=== PATIENT | female | born 1990 | race Caucasian/White ===

== ENCOUNTER 2018-04-06 16:44 | Emergency (ER) | payer BC ==
[~2018-04-06] VITALS: Ht 172.7 cm; Wt 101.6 kg
[2018-04-06 17:26] LABS: BILIRUBIN,URINE NEGATIVE (NEGATIVE); CLARITY,URINE CLEAR; COLOR,URINE YELLOW; GLUCOSE, URINE (UA) NEGATIVE (NEGATIVE); KETONES,URINE NEGATIVE (NEGATIVE); LEUKOCYTE ESTERASE ,URINE NEGATIVE (NEGATIVE); NITRITE,URINE NEGATIVE (NEGATIVE); PH,URINE 7 (5-9); PROTEIN,URINE NEGATIVE (NEGATIVE); UROBILINOGEN,URINE NORMAL (NORMAL)
[2018-04-06 17:36] LABS: BACTERIA,URINE FEW /HPF
--- NOTE | 2018-04-06 18:15 | Diagnostic Imaging Report ---
INDICATION: Pelvic pain. EXAMINATION: Transvaginal ultrasound. FINDINGS: The uterus appears normal. There is no fibroid or myometrial mass. Right ovary contains a 2.5 cm simple appearing cyst. The left ovary appears normal. There is a small amount of free fluid in the right adnexa and cul-de-sac without obvious complexity. There were no findings of torsion. IMPRESSION: Small free fluid with simple appearing right ovarian cyst. Dictated by: Dictated on workstation # [id number]
--- NOTE | 2018-04-06 18:30 | ED Abdominal Pain ---
General Chief Complaint: -Female Stated Complaint: LOWER ABD PAIN Nursing Triage Note: PT AMBULATED TO RM 6 WITHOUT DIFFICULTIES AND ACCOMPANIED BY MOTHER. PT STATES SHE HAD A UTI LAST WEEK AND FINISHED BACTRIM ON MONDAY. PT STATES SHE DEVELOPED A RASH ON THE LAST DAY OF BACTRIM. PT STATES SHE BEGAN HAVING LOWER AB PAIN ON MONDAY. WENT TO [facility] TODAY AND WAS TOLD THERE WAS BLOOD IN HER URINE. PT C/O OF LOWER ABDOMINAL PAIN THAT RADIATES TO THE BACK, NO APPETITE AND LOOSE STOOLS. PT HAS HAD GALLBLADDER REMOVED. PT STILL HAS APPENDIX. Sepsis Screen: No Definite Risk Source of Information: Patient Exam Limitations: No Limitations History of Present Illness Date Seen by Provider: Apr 06, 2018 Time Seen by Provider: 07:10 Initial Comments Patient presents with symptoms of pelvic pain for about 3 or 4 days which is focused on the right side. She had treated a suspected urinary tract infection with Bactrim. She developed a rash with Bactrim. The prescription was provided by an eye doctor but no UA was performed. Her symptoms include pain in the pelvis with tenderness in the right lower quadrant, and sedation of incomplete voiding, urinary frequency, and cloudy urine. She denies any fever, constipation, nausea, or vomiting. She has had some loose stools today. Her last menstrual period was March 16. She is taking some ibuprofen which has been helpful. She has had some milky white discharge in small amounts. She is sexually active and is on control. She only sometimes uses condoms. She is only had one partner within the last year. She has no history of vaginal infections other than yeast infections associated with antibiotics. She reports having a miscarriage in October. She has had cholecystectomy. See nursing history above. Allergies and Home Medications Allergies Coded Allergies: No Known Drug Allergies (Unverified , 03/17/13) Home Medications Fluconazole 150 Mg Tablet, 150 MG PO UD Take one at the first sign of a yeast infection. Repeat in 3 or 4 days if needed. Prescribed by: JOSE F LABOY on 04/06/181837 Nitrofurantoin Monohyd/M-Cryst 100 Mg Capsule, 1 TAB PO BID Prescribed by: JOSE F LABOY on 04/06/181837 Patient Home Medication List Home Medication List Reviewed: Yes Review of Systems Constitutional: no symptoms reported EENTM: No Symptoms Reported Respiratory: No Symptoms Reported Cardiovascular: No Symptoms Reported Gastrointestinal: See HPI Genitourinary: See HPI Musculoskeletal: no symptoms reported Skin: no symptoms reported Psychiatric/Neurological: No Symptoms Reported Endocrine: No Symptoms Reported Past Cyersek-Krcxeu-Maykrt Hx Past Med/Social Hx: Reviewed and Corrections made Patient Social History Alcohol Use: Denies Use Recreational Drug Use: No Recent Foreign Travel: No Contact w/Someone Who Travel: No Recent Infectious Disease Expo: No Recent Hopitalizations: No Physical Abuse: No Sexual Abuse: No Immunizations Up To Date Tetanus Booster (TDap): Unknown Seasonal Allergies Seasonal Allergies: No Past Medical History Surgeries: Yes Gallbladder Respiratory: No Cardiac: No Neurological: No : No Last Menstrual Period: Mar 20, 2018 Reproductive Disorders: No Genitourinary: No Gastrointestinal: No Musculoskeletal: No Endocrine: No HEENT: No Cancer: No Psychosocial: No Nursing Suicide Risk Score: 0 Integumentary: No Blood Disorders: No Physical Exam Vital Signs Vital Signs - First Documented 04/06/18 17:03 Temp 97.3 Pulse 92 B/P (MAP) 127/83 (98) Pulse Ox 100 O2 Delivery Room Air Capillary Refill : Less Than 3 Seconds Height/Weight/BMI Height: 5'8.00" Weight: 224lbs. oz. 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, no motor/sensory deficits, alert, normal mood/affect, oriented x 3 Skin: normal color, warm/dry Progress/Results/Core Measures Results/Orders Lab Results Laboratory Tests Test 04/06/18 17:20 Range/Units Urine Color YELLOW Urine Clarity CLEAR Urine pH 7 5-9 Urine Specific Mchenry 1.010 L 1.016-1.022 Urine Protein NEGATIVE NEGATIVE Urine Glucose (UA) NEGATIVE NEGATIVE Urine Ketones NEGATIVE NEGATIVE Urine Nitrite NEGATIVE NEGATIVE Urine Bilirubin NEGATIVE NEGATIVE Urine Urobilinogen NORMAL NORMAL MG/DL Urine Leukocyte Esterase NEGATIVE NEGATIVE Urine RBC (Auto) 4+ H NEGATIVE Urine RBC 2-5 H /HPF Urine WBC 5-10 H /HPF Urine Squamous Epithelial Cells 5-10 /HPF Urine Crystals NONE /LPF Urine Bacteria FEW H /HPF Urine Casts NONE /LPF Urine Mucus NEGATIVE /LPF Urine Culture Indicated YES My Orders Orders - JOSE F MARCH MD Urine Bedside (04/06/18 17:19) Ua Culture If Indicated (04/06/18 17:19) Us Non Ob Transvaginal [id number] (04/06/18 17:19) Urine Culture (04/06/18 17:20) Vital Signs/I&O 04/06/18 17:03 Temp 97.3 Pulse 92 B/P (MAP) 127/83 (98) Pulse Ox 100 O2 Delivery Room Air Blood Pressure Mean: 98 Urine -Bedside: Negative Progress Progress Note : Progress Note Patient's UA was suggestive of urinary tract infection. Macrobid was prescribed. Ultrasound was performed revealing a small right ovarian cyst with free fluid suggestive of rupture. Departure Impression Primary Impression: Right lower quadrant pain Additional Impressions: Urinary tract infection Qualified Codes: N39.0 - Urinary tract infection, site not specified Ovarian cyst Qualified Codes: N83.201 - Unspecified ovarian cyst, right side Disposition: 01 HOME, SELF-CARE Condition: Stable Departure-Patient Inst. Decision time for Depature: 18:15 Referrals: NO,LOCAL PHYSICIAN (PCP/Family) Primary Care Physician Patient Instructions: Acute Abdomen (Belly Pain), Ovarian Cyst (DC), Urinary Tract Infection, Adult (DC) Add. Discharge Instructions: You may take ibuprofen up to 600 mg every 6 hours as needed for pain. Add Tylenol (acetaminophen) up to 1000 mg every 6 hours as needed for additional pain relief. Return to care if symptoms are worsening. Complete the entire course of your antibiotic as prescribed. Check with your primary care provider on Monday to review urine culture results. This will help ensure you are taking an appropriate antibiotic for the type of infection. If you develop symptoms of yeast infection, fill and use the Diflucan as prescribed. All discharge instructions reviewed with patient and/or family. Voiced understanding. Scripts Fluconazole (Diflucan) 150 Mg Tablet 150 MG PO UD, #2 TAB Take one at the first sign of a yeast infection. Repeat in 3 or 4 days if needed. Prov: JOSE F MARCH MD 04/06/18 Nitrofurantoin Monohyd/M-Cryst (Macrobid 100 mg Capsule) 100 Mg Capsule 1 TAB PO BID, #14 CAP Prov: JOSE F MARCH MD 04/06/18 JOSE F MARCH MD Apr 06, 2018 18:30
[2018-04-06] MEDS ORDERED: NITR-65 PO (18:38)
[2018-04-06] MEDS ORDERED: FLUC150T PO (18:38)
[2018-04-06 18:52] VITALS: BP 124/82
--- OUTSIDE RECORDS SUMMARY | 2018-04-06 19:34 | XMS REPORT ---
Author Author JONAS GARCIA [facility] Address Unknown Care Team Providers Care Shipping Clerk/Admin Name Role Phone RADHA JONAS Unavailable PROBLEMS Unknown Problems ALLERGIES No Known Allergies ENCOUNTERS Encounter Location Date Diagnosis [facility] [address] [id number] [place], [place] [id number] Jul, Dental examination Z01.20 IMMUNIZATIONS No Known Immunizations SOCIAL HISTORY Never Assessed REASON FOR VISIT walk in [place] PLAN OF CARE Activity Details Follow Up prn Reason: VITAL SIGNS Blood pressure systolic 121 mmHg 2017-07-14 Blood pressure diastolic 73 mmHg 2017-07-14 MEDICATIONS Medication Instructions Dosage Frequency Start Date End Date Duration Status Sprintec 28 Active RESULTS No Results PROCEDURES Procedure Date Ordered Result Body Site LTD ORAL EVALUATION - PROBLEM FOCUS Jul 14, 2017 INTRAORL-PERIAPICAL 1 FILM [id number] Jul 14, 2017 RESIN COMPOS - 2 SURFACES POSTERIOR Jul 14, 2017 BITEWING - SINGLE FILM Jul 14, 2017 INSTRUCTIONS MEDICATIONS ADMINISTERED No Known Medications MEDICAL (GENERAL) HISTORY Type Description Date Surgical History [place] [facility] 2009 Surgical History Gallbladder removal 2011
--- OUTSIDE RECORDS SUMMARY | 2018-04-06 19:34 | XMS REPORT | Continuity of Care Document ---
Author Author [facility] Organization [facility] Address Unknown Phone Unavailable Care Team Providers Care Fire Alarm Technician Name Role Phone ADELINA HOUGH MD PP Insurance Providers Payer Name Policy Number Subscriber Name Relationship Jun [facility] [id number] Jocelyne Clifton 03 Father Jun [facility] [id number] Koki Clifton 03 Mother Advance Directives Directive Response Recorded Date Advance Directives N 03/17/13 4:19pm Problems No Known Problems or Medical conditions. Social History History Response Recorded Date/Time Alcohol Use Denies Use 03/17/13 4:19pm Recreational Drug Use N 03/17/13 4:19pm Allergies, Adverse Reactions, Alerts Allergen Type Severity Reaction Last Updated No Known Drug Allergies 03/17/13 Medications No known medications Response Recorded Date/Time Status not known Unknown Results No Known Relevant Diagnostic Tests, Laboratory Data and/or Discharge Summary. Encounters Encounter Location Date/Time Departed Emergency Room [facility] 03/23 3:59pm
== END 2018-04-06 18:52 | disposition home or self-care (01) ==
LOC: EDUNIT# 16:44 → ER 16:46
DX: N83.201 Unspecified ovarian cyst, right side (principal); N39.0 Urinary tract infection, site not specified; Z87.440 Personal history of urinary (tract) infections; Z90.49 Acquired absence of other specified parts of digestive tract; Z87.59 Personal history of other complications of pregnancy, childbirth and the puerperium
CPT/HCPCS: 76830; 81000; 84703; 87088

== ENCOUNTER → 2019-08-22 | Outpatient (CLI) | payer BC ==
[~2019-08-22] MED LIST: FLUC150T PO; NITR-65 PO
--- NOTE | 2019-08-22 08:43 | Diagnostic Imaging Report ---
CLINICAL INDICATIONS: Patient with left neck mass. COMPARISONS: None. FINDINGS: THYROID NODULES: There is a 2.0 cm x 1.2 cm x 1.6 cm slightly heterogeneous, predominantly hypoechoic nodule involving the midportion of the left thyroid lobe. There is no significant central Doppler flow involving this nodule. THYROID GLAND: Besides the thyroid nodule, the thyroid gland has normal size, shape and echogenicity. The right lobe measures 5.2 cm x 1.7 cm x 1.4 cm and the left lobe measures 5.8 cm x 1.9 cm x 1.9 cm in their three dimensions. ISTHMUS: The isthmus is unremarkable and measures 3 mm in thickness. IMPRESSION: 1: There is a 2.0 cm nodule involving the midportion of the left thyroid gland. Given its size, fine-needle aspiration is suggested for better evaluate. 2: The remainder of the thyroid gland is unremarkable. Dictated by: Dictated on workstation # [id number]
== END ==
LOC: RAD 07:36
PROVIDERS: ATTEND Family Medicine
DX: E04.1 Nontoxic single thyroid nodule (principal)
CPT/HCPCS: 76536

== ENCOUNTER → 2019-08-28 | Outpatient (CLI) | payer BC ==
[~2019-08-28] MED LIST changes: +LIDOCAINE 1% INJ 20 ML 20 ML VIAL INJ ONE; +LIDOCAINE 1% INJ 20 ML 20 ML VIAL ONE
--- NOTE | 2019-08-29 13:44 | Diagnostic Imaging Report ---
INDICATION: Left thyroid nodule. COMPARISON: Correlation is made with recent thyroid ultrasound from 08/22/2019. FINDINGS: Patient reported today for fine-needle aspiration of left thyroid nodule. A previously noted hypoechoic nodule in left lobe of the thyroid has significantly reduced in size. This now measures 11 mm x 9 mm x 5 mm. This compares with 20 mm x 12 mm x 16 mm on prior. No microcalcifications are seen. No other thyroid nodules are detected. Due to significant decrease in size of the nodule, it was decided to cancel patient's fine-needle aspiration. After discussion with the patient, it was decided that patient should come back in six months for additional thyroid ultrasound to show continued stability of the left thyroid nodule. IMPRESSION: Significant reduction in size of left lobe thyroid nodule when compared with study six days earlier. This is most consistent with significant reduction in size of a complex cyst such as a colloid cyst. Follow-up in six months is recommended to show stability. Dictated by: Dictated on workstation # [id number]
== END ==
LOC: RAD 13:43
PROVIDERS: ATTEND Family Medicine
DX: E04.1 Nontoxic single thyroid nodule (principal); R22.1 Localized swelling, mass and lump, neck
CPT/HCPCS: 76536

== ENCOUNTER → 2020-07-31 | Outpatient (CLI) | payer BC ==
[~2020-07-31] MED LIST changes: -LIDOCAINE 1% INJ 20 ML 20 ML VIAL INJ ONE; -LIDOCAINE 1% INJ 20 ML 20 ML VIAL ONE
--- NOTE | 2020-07-31 09:51 | Diagnostic Imaging Report ---
PROCEDURE: US Thyroid. TECHNIQUE: Multiple real-time grayscale images were obtained of the thyroid in various projections. INDICATION: Thyroid nodule, follow-up. CORRELATION is made with prior thyroid ultrasound from 08/22/2019. Right lobe of thyroid measures 5.2 x 1.5 x 1.7 cm and the left lobe measures 5.6 x 1.4 x 1.5 cm. A complex cystic lesion in the mid left lobe is much smaller on today's study measuring 5 mm x 3 mm x 4 mm compared with 20 mm x 13 mm x 16 mm. There is a new nodule in the inferior medial left lobe measuring 9 mm x 5 mm x 8 mm. This is well-circumscribed. No microcalcifications are seen. Right lobe is unremarkable. IMPRESSION: 1. Significant decrease in size of a complex cystic mass in the mid left thyroid when compared with the exam from 08/22/2019. 2. New subcentimeter nodule in the lower pole left lobe. Continued follow-up could be performed in 6-12 months. Dictated by: Dictated on workstation # [id number]
== END ==
LOC: RAD 08:00
PROVIDERS: ATTEND Family Medicine
DX: E04.1 Nontoxic single thyroid nodule (principal)
CPT/HCPCS: 76536

== ENCOUNTER → 2022-01-21 | Outpatient (CLI) | payer BC ==
--- NOTE | 2022-01-21 08:59 | Diagnostic Imaging Report ---
INDICATION: LEFT THYROID NODULE TECHNIQUE: Grayscale sonographic images of the thyroid gland. CORRELATION STUDY: 07/31/2020 FINDINGS: RIGHT LOBE: Enlarged at 5.1 x 1.3 x 1.5 cm. Small hypoechoic nodule mid aspect, 4 x 3 x 5 mm. No internal vascularity. LEFT LOBE: Enlarged at 5.5 x 1.3 x 1.6 cm. Slightly hypoechoic solid-appearing nodule inferior pole, 8 x 4 x 8 mm (previously 9 x 5 x 8 mm). No significant microcalcifications. The previously demonstrated more complex cystic nodule left thyroid lobe not visualized at follow-up. Isthmus appears unremarkable. IMPRESSION: Enlarged thyroid gland. Subcentimeter solid nodule left lobe overall appearing stable. Follow-up ultrasound imaging approximately 6 months to 1 year. (Normal gland size: 4-5 x 2 x 2 cm) Dictated by: Dictated on workstation # [id number]
== END ==
LOC: RAD 08:00
PROVIDERS: ATTEND Family Medicine
DX: E04.1 Nontoxic single thyroid nodule (principal)
CPT/HCPCS: 76536